=== PATIENT | female | born 1975 | race Asian ===

== ENCOUNTER 2021-11-05 12:40 | Emergency (ER) | payer BC ==
[~2021-11-05] VITALS: Ht 160 cm; Wt 57.6 kg
[2021-11-05 12:49] VITALS: BP_SYST 160
--- NOTE | 2021-11-05 12:55 | NUR ---
PT TRIAGED AND PLACED IN ED WAITING ROOM FOR AVAILABLE BED, MADE AWARE OF MSE NEEDS
--- NOTE | 2021-11-05 13:00 | NUR ---
PT CAME IN FROM HOME REPORTS TINGLING AND HOT FLASHES IN ARMS, LEGS, HANDS AND FEET SINCE LAST JULY, HAS SEEN PCP WHO REFERRED TO [facility] BUT NO APPT YET. PT ALSO C/O WEAKNESS. PT IS AMBULATORY, AAOX4, VSS
--- NOTE | 2021-11-05 14:22 | NUR ---
BROUGHT BACK TO BED #6 AND TRIAGED. REPORT GIVEN TO SIMONE
--- NOTE | 2021-11-05 14:51 | NUR ---
ER DR. GUTIERREZ AT THE BEDSIDE EXAMINING PT
[2021-11-05] MEDS ORDERED: NEU300 PO (15:12)
[2021-11-05 15:20] VITALS: BP_SYST 160
--- NOTE | 2021-11-05 15:20 | NUR ---
Patient given written and verbal discharge instructions and verbalizes understanding. ER MD discussed with patient the results and treatment provided. Patient in stable condition. ID arm band removed. Rx of GABAPENTIN given. Patient educated on pain management and to follow up with PMD. Pain Scale 0/10. Opportunity for questions provided and answered. Medication side effect fact sheet provided.
== END 2021-11-05 15:20 | disposition home or self-care (01) ==
LOC: SED 12:40
DX: R20.2 Paresthesia of skin (principal); R53.1 Weakness; M79.662 Pain in left lower leg; Z91.040 Latex allergy status
CPT/HCPCS: 99283